=== PATIENT | female | born 1975 | race African-American/Black ===

== ENCOUNTER 2021-03-27 00:38 | Emergency (ER) | payer MEDICAID ==
[~2021-03-27] VITALS: Ht 157.5 cm; Wt 85.0 kg
[2021-03-27] MEDS ORDERED: TETRACAINE 0.5% OPHTH DROPS 4ML RIGHTEYE ONE (02:00)
[2021-03-27] MEDS ORDERED: FLUORESCEIN SODIUM 1MG/STRIP RIGHTEYE ONE (02:00)
[2021-03-27] MEDS ORDERED: ACET-2708 MT (04:18)
[2021-03-27 04:28] VITALS: BP 142/76
== END 2021-03-27 04:30 | disposition home or self-care (01) ==
LOC: ER 00:38
DX: H57.11 Ocular pain, right eye (principal); H53.8 Other visual disturbances; H53.141 Visual discomfort, right eye; R03.0 Elevated blood-pressure reading, without diagnosis of hypertension
CPT/HCPCS: 99283